=== PATIENT | male | born 1970 | race Caucasian/White ===

== ENCOUNTER 2017-06-15 12:40 | Emergency (ER) | payer OTHER ==
[~2017-06-15] VITALS: Ht 179.1 cm; Wt 101.9 kg
[2017-06-15 12:51] VITALS: BP 124/81
[2017-06-15] MEDS ORDERED: DEXAMETHASONE 4 MG TABLET ONE (13:20)
[2017-06-15] MEDS ORDERED: DEXAMETHASONE 4 MG TABLET PO ONE (13:30)
== END 2017-06-15 13:33 | disposition home or self-care (01) ==
LOC: ED 13:29
DX: J02.0 Streptococcal pharyngitis (principal)
CPT/HCPCS: 99283